=== PATIENT | male | born 1990 | race Caucasian/White ===

== ENCOUNTER 2020-10-06 04:55 | Inpatient (IN) | payer BC ==
[2020-10-06 05:05] VITALS: RESP 18
--- NOTE | 2020-10-06 05:07 | ED ---
Psych HPI - General Chief Complaint: Psychiatric Symptoms Stated Complaint: Mental health Time Seen by Provider: 10/06/20 05:07 Source: patient, RN notes reviewed, old records reviewed, Caregiver Mode of arrival: EMS Limitations: no limitations - History of Present Illness Initial Comments: This is a 30-year-old male presenting for mental health evaluation. Patient states is having worsening of his mental health issues. Feels suicidal feels depressed MD Complaint: suicidal ideation, feels depressed -: unknown Associated Psychiatric Symptoms: depression, suicidal ideation, racing thoughts History of same: Yes Quality: constant, getting worse Improves With: none Worsens With: none Context: significant life stressor Associated Symptoms: denies other symptoms Treatments Prior to Arrival: placed on mental health hold If Self Harm: admits thoughts of self harm - Related Data Home Medications Medication Instructions Recorded Confirmed Venlafaxine HCl ER [Effexor Xr] 37.5 mg PO DAILY 10/06/20 10/06/20 Allergies Allergy/AdvReac Type Severity Reaction Status Date / Time No Known Allergies Allergy Verified 10/06/20 14:35 Review of Systems ROS Statement: Those systems with pertinent positive or pertinent negative responses have been documented in the HPI. ROS Other: All systems not noted in ROS Statement are negative. Past Medical History Past Medical History: No Reported History History of Any Multi-Drug Resistant Organisms: None Reported Past Surgical History: No Surgical Hx Reported Past Psychological History: No Psychological Hx Reported Smoking Status: Current every day smoker Past Alcohol Use History: None Reported Past Drug Use History: Marijuana, Methamphetamine General Exam General appearance: alert, in no apparent distress Head exam: Present: atraumatic, normocephalic, normal inspection Eye exam: Present: normal appearance, PERRL, EOMI. Absent: scleral icterus, conjunctival injection, periorbital swelling ENT exam: Present: normal exam, mucous membranes moist Neck exam: Present: normal inspection. Absent: tenderness, meningismus, lymphadenopathy Respiratory exam: Present: normal lung sounds bilaterally. Absent: respiratory distress, wheezes, rales, rhonchi, stridor Cardiovascular Exam: Present: regular rate, normal rhythm, normal heart sounds. Absent: systolic murmur, diastolic murmur, rubs, gallop, clicks GI/Abdominal exam: Present: soft, normal bowel sounds. Absent: distended, tenderness, guarding, rebound, rigid Extremities exam: Present: normal inspection, full ROM, normal capillary refill. Absent: tenderness, pedal edema, joint swelling, calf tenderness Back exam: Present: normal inspection Neurological exam: Present: alert, oriented X3, CN II-XII intact Psychiatric exam: Present: normal affect, normal mood Skin exam: Present: warm, dry, intact, normal color. Absent: rash Course Vital Signs 10/06/20 10/06/20 05:01 13:25 Temperature 97.8 F Pulse Rate 81 80 Respiratory 18 18 Rate Blood Pressure 128/81 121/78 O2 Sat by Pulse 98 100 Oximetry - Reevaluation(s) Reevaluation #1: 10/06/20 06:09 Medical records reviewed Reevaluation #2: 10/06/20 06:09 Medical clear for psychiatric evaluation Medical Decision Making - Medical Decision Making 30 male seen and evaluated psychiatry patient be admitted for psychiatric evaluation and treatment - Lab Data Lab Results 10/06/20 10/06/20 10/06/20 Range/Units 10:14 10:14 11:00 Urine Color Yellow Urine Appearance Clear (Clear) Urine pH 6.0 (5.0-8.0) Ur Specific [place] 1.015 (1.001-1.035) Urine Protein Negative (Negative) Urine Glucose (UA) Negative (Negative) Urine Ketones Trace H (Negative) Urine Blood Negative (Negative) Urine Nitrite Negative (Negative) Urine Bilirubin Negative (Negative) Urine Urobilinogen <2.0 (<2.0) mg/dL Ur Leukocyte Esterase Negative (Negative) Urine Opiates Screen Not Detected (NotDetected) Ur Oxycodone Screen Not Detected (NotDetected) Urine Methadone Screen Not Detected (NotDetected) Ur Propoxyphene Screen Not Detected (NotDetected) Ur Barbiturates Screen Not Detected (NotDetected) U Tricyclic Antidepress Not Detected (NotDetected) Ur Phencyclidine Scrn Not Detected (NotDetected) Ur Amphetamines Screen Detected H (NotDetected) U Methamphetamines Scrn Detected H (NotDetected) U Benzodiazepines Scrn Not Detected (NotDetected) Urine Cocaine Screen Not Detected (NotDetected) U Marijuana (THC) Screen Detected H (NotDetected) Coronavirus (PCR) Not Detected (Not Detectd) Disposition Clinical Impression: Depression, Suicidal ideation, Acute anxiety Disposition: TRANSFER TO PSYCH HOSP/UNIT Condition: Fair Is patient prescribed a controlled substance at d/c from ED?: No
[2020-10-06 10:55] LABS: Amphetamine Screen,Urine Detected (NotDetected); Barbiturate Screen,Urine Not Detected (NotDetected); Benzodiazepines Screen,Urine Not Detected (NotDetected); Cocaine Screen,Urine Not Detected (NotDetected); Methadone Screen, Urine Not Detected (NotDetected); Opiate Screen,Urine Not Detected (NotDetected); Oxycodone Screen, Urine Not Detected (NotDetected); Phencyclidine Screen,Urine Not Detected (NotDetected); Tricyclic Antidepressant,Urine Not Detected (NotDetected); Urn Cannabinoid Scrn Detected (NotDetected)
[2020-10-06] MEDS ORDERED: ACETAMINOPHEN TAB 325 MG TAB PO PRN (13:26)
[2020-10-06] MEDS ORDERED: LORazepam 1 MG TAB PO PRN (13:26)
[2020-10-06] MEDS ORDERED: MAG HYDROX/AL HYDROX/SIMETH 30 ML CUP PO PRN (13:26)
[2020-10-06] MEDS ORDERED: MAGNESIUM HYDROXIDE 2,400 MG/10 ML CUP PO PRN (13:26)
[2020-10-06] MEDS ORDERED: LORazepam 2 MG/ML INJ IM PRN (13:28)
[2020-10-06] MEDS ORDERED: haloperidoL 5 MG TAB PO PRN (13:29)
[2020-10-06] MEDS ORDERED: HALOPERIDOL LACTATE 5 MG/ML 1 ML VIAL IM PRN (13:29)
[2020-10-06] MEDS ORDERED: traZODone HCL 50 MG TAB PO PRN (13:30)
[2020-10-06 17:47] LABS: Appearance,Urine Clear (Clear); Bilirubin,Urine Negative (Negative); Blood,Urine Negative (Negative); Color,Urine Yellow; Glucose,Urine (UA) Negative (Negative); Ketones,Urine Trace (Negative); Leukocyte Esterase,Urine Negative (Negative); Nitrite,Urine Negative (Negative); Protein,Urine Negative (Negative); Specific Gravity,Urine 1.015 (1.001-1.035); Urobilinogen,Urine <2.0 mg/dL (<2.0)
--- NOTE | 2020-10-07 03:31 | P.CONS ---
History of Present Illness - Reason for Consult Consult date: 10/07/20 - History of Present Illness The patient is a 30-year-old male with a PMH of polysubstance abuse and depression who presented to the emergency room with depression and suicidal ideation. The patient reported that he had been struggling with his substance abuse and multiple social issues including his possibly having an affair. He reports continued feelings of depression following his admission. Denied having any particular plan on how to harm himself. Denied physical complaints. Denied chest discomfort, shortness of breath, fever, cough. Denied abdominal pain, nausea, vomiting. Reports smoking 1 pack of cigarettes daily along with using methamphetamines and marijuana. She does not wish to go to a rehab at this time Review of systems: Pertinent positives and negatives as discussed in HPI, a complete review of systems was performed and all other systems are negative. Physical examination: General: non toxic, no distress, appears at stated age, normal weight Derm: no unusual rashes/lesions no unusual ecchymoses, warm, dry Head: atraumatic, normocephalic, symmetric Eyes: EOMI, no lid lag, anicteric sclera, pupils equal round reactive to light ENT: Nose and ears atraumatic, no thrush, no pharyngeal erythema Neck: No thyromegaly, no cervical lymphadenopathy, trachea midline, supple Mouth: no lip lesion, mucus membranes moist Cardiovascular: S1S2 reg, no murmur, positive posterior tibial pulse bilateral, no edema, capillary refill less than 2 seconds Lungs: CTA bilateral, no rhonchi, no rales , no accessory muscle use Abdominal: soft, nontender to palpation, no guarding, no appreciable organomegaly, normal bowel sounds Ext: no gross muscle atrophy, muscle strength 5 out of 5 in all 4 extremities grossly, no contractures, Neuro: CN II-XI grossly intact, light touch intact all 4 extremities, finger to nose within normal limits, Psych: Alert, oriented, depressed affect Assessment/plan Polysubstance abuse -Advised on the importance of cessation Depression and suicidal ideation -As per psychiatry Thank you for allowing us to participate in the care of this patient. We will follow peripherally. Do not hesitate to contact us with questions. Someone can be reached from the [facility] hospitalist group at all hours of the day at [phone]. Past Medical History Past Medical History: No Reported History History of Any Multi-Drug Resistant Organisms: None Reported Past Surgical History: No Surgical Hx Reported Past Psychological History: No Psychological Hx Reported Smoking Status: Current every day smoker Past Alcohol Use History: None Reported Past Drug Use History: Marijuana, Methamphetamine Medications and Allergies Home Medications Medication Instructions Recorded Confirmed Type Venlafaxine HCl ER [Effexor Xr] 37.5 mg PO DAILY 10/06/20 10/06/20 History Allergies Allergy/AdvReac Type Severity Reaction Status Date / Time No Known Allergies Allergy Verified 10/06/20 14:35 Physical Exam Vitals: Vital Signs Temp Pulse Pulse Resp BP BP Pulse Ox 10/06/20 14:17 98.7 F 74 18 124/79 100 10/06/20 13:25 80 18 121/78 100 10/06/20 05:01 97.8 F 81 18 128/81 98 Intake and Output 10/06/20 10/06/20 10/07/20 14:59 22:59 06:59 Other: Weight 63.503 kg Results Labs: Abnormal Lab Results - Last 24 Hours (Table) 10/06/20 10/06/20 Range/Units 10:14 10:14 Urine Ketones Trace H (Negative) Ur Amphetamines Screen Detected H (NotDetected) U Methamphetamines Scrn Detected H (NotDetected) U Marijuana (THC) Screen Detected H (NotDetected)
[2020-10-07] MEDS: NICOTINE 14MG/24HR PATCH TRANSDERM SCH (08:37)
[2020-10-07] MEDS ORDERED: VENLAFAXINE HCL ER 37.5 MG CAP PO SCH (09:00)
[2020-10-07 09:28] LABS: ALT 20 U/L (4-49); AST 27 U/L (17-59); African American GFR (CKD) >90 (>60 ml/min/1.73 sqM); Albumin 4.5 g/dL (3.5-5.0); Alkaline Phosphatase 61 U/L (38-126); Anion Gap 9 mmol/L; Blood Urea Nitrogen 11 mg/dL (9-20); Calcium 9.5 mg/dL (8.4-10.2); Carbon Dioxide 23 mmol/L (22-30); Chloride 107 mmol/L (98-107); Glucose 141 mg/dL (74-99); Non-African American GFR(CKD) >90 (>60 ml/min/1.73 sqM); Sodium 139 mmol/L (137-145); Total Bilirubin 0.7 mg/dL (0.2-1.3)
[2020-10-07 09:29] LABS: Basophils # (A) 0.1 k/uL (0-0.2); Basophils % (A) 1 %; Eosinophils # (A) 0.2 k/uL (0-0.7); Eosinophils % (A) 2 %; HCT 47.6 % (39.0-53.0); HGB 16.1 gm/dL (13.0-17.5); Lymphocytes # (A) 2.1 k/uL (1.0-4.8); Lymphocytes % (A) 31 %; MCH 29.6 pg (25.0-35.0); MCHC 33.9 g/dL (31.0-37.0); MCV 87.3 fL (80.0-100.0); Mean Platelet Volume 7.1; Monocytes # (A) 0.4 k/uL (0-1.0); Monocytes % (A) 6 %; Neutrophils # (A) 3.9 k/uL (1.3-7.7); Neutrophils % (A) 58 %; Platelet Count 304 k/uL (150-450); RBC 5.45 m/uL (4.30-5.90); RDW 12.9 % (11.5-15.5); WBC 6.8 k/uL (3.8-10.6)
[2020-10-07] MEDS: OLANZapine 5 MG TAB PO SCH ×4 (15:07→22:03)
[2020-10-07 17:15] LABS: Chol/HDL Ratio 2.67; Cholesterol 139 mg/dL (0-200); LDL Cholesterol,Calculated 72.2 mg/dL (0.0-131.0)
[2020-10-07 17:56] LABS: Hemoglobin A1C 4.9 % (4.0-6.0)
--- NOTE | 2020-10-07 20:17 | HP ---
HISTORY AND PHYSICAL IDENTIFYING DATA: The patient is a 30-year-old male. He resides with his and 2 children ages 4 and 5. He presented to the ED for evaluation. CHIEF COMPLAINT: The patient had been abusing methamphetamines. He was getting agitated. He had paranoid thinking. HISTORY OF PRESENTING ILLNESS: The patient has not had a prior psychiatric hospitalization. He notes that over the last 6 months he started using and abusing methamphetamine. He said a precipitating factor was a number of stress issues. One included that his father had been diagnosed with leukemia. Another was that he felt under a lot of stress at work. 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 He acknowledges that he had alcohol issues in his early 20s as he said that "I partied a lot." He said that he likely tends to have a tendency towards drug use. He has occasionally used cocaine. When he started getting into methamphetamines he said it became very frequent use up to the present. One additional stress was that some months back he discovered that his was having online affairs. He said he had a lot of distress over this. He developed paranoid thinking that there was more going on than what he was able to understand in reality. He said that in fact what lead to his coming into the hospital is that he and his had an agreement to be open with their telephone so they could track one another if there were any questions or concerns. The patient said he started feeling jealous of his and on the day prior to admission he got on her telephone and got obsessed with trying to find telephone numbers and other contacts. He acknowledged that he was not able to find anything other than what had happened in the past though he said that he just escalated in his worries and fears about it. He said he got to the point where his threatened to petition him to the hospital. As such, he ended in the middle of the night driving himself to the hospital. He has been on Effexor 37.5 mg a day, which she has been on for about 3 months. He says the Effexor has helped some with depression. He notes that he has been sleeping poorly. He has loss of motivation, energy and interest. He notes that in the past he had been in some counseling, though says with the stress that he was dealing with over the last 6 months and especially the stress relating to his marital situation, he did not reach out for support or help as he should have. He acknowledged that he had affairs himself and that in the midst of the marital issues he and his became much more distant and having very poor communication. He said at this point with his children being 4 and 5 years old, that the marital issues became more of a crisis as he was faced with parenting issues. The patient denies having hallucinations, though acknowledges some paranoia. He does feel that has been lessening. He did not clearly describe past trauma or post-traumatic issues. He does have significant anxiety. He was vague about whether or not he has had panic symptoms. Currently he has been taking Effexor XR 37.5 mg a day prescribed by his primary care physician, Dr. Juarez. He is admitted for further evaluation. SUBSTANCE USE HISTORY: As above. PAST MEDICAL HISTORY: The patient reports no chronic or current general health complaints. FAMILY AND SOCIAL HISTORY: The patient has been for 7 years. He and his have 2 children, ages 4 and 5. The patient has a high school degree and has considered some college work. 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 His works as a nurse. MENTAL STATUS EXAM: Patient sat with a little restlessness. He gave good eye contact. He answered questions with direct responses. He did not say a lot. He was somewhat spontaneous and interactive. His thoughts were clear and coherent. His affect was anxious. His mood was depressed. He was significantly distressed. He indicated some paranoid thinking, though otherwise did not note significant psychotic symptoms. He voiced no thoughts of harm. On cognitive exam he was oriented x3 and alert. He remembered 2/3 objects in 4 minutes. He could give the days of the week in reverse order without difficulty. He could do serial 3 subtraction. Insight and judgment were fair. Fund of knowledge average. PHYSICAL EXAM: As per medical consultation. ASSESSMENT: This 30-year-old male is diagnosed with major depression and methamphetamine abuse and dependence. He has significant stress issues, particularly marital conflicts. He does show insight into some of his mental health issues which in part was part of his presenting to the hospital. This is one of his strengths. Weakness includes methamphetamine abuse. DIAGNOSES: 1. Major depression, severe. 2. Methamphetamine abuse and dependence with acute methamphetamine withdrawal. RECOMMENDATIONS: Patient will be admitted for comprehensive medical psychiatric and psychosocial evaluation. We will engage the patient in individual and group therapeutic activities. I had an extensive discussion with the patient regarding substance use issues and the course of withdrawal. It does appear that the patient has had a proclivity towards substance dependence given his current use plus history of problems with alcohol. I will start the patient on Zyprexa 5 mg 3 times a day. The aim of Zyprexa is to help reduce physiologic stress response relating to acute alcohol withdrawal. I will continue Effexor XR. The dose will be increased to 75 mg a day. I discussed with the patient that he is not likely to gain much benefit from antidepressant in the for 6 weeks of withdrawing off the methamphetamine though beyond that Effexor may be a beneficial medication. We discussed the long-term course of treatment with antidepressants. I reviewed indication for Zyprexa, potential side effects and longer- term concerns relating to metabolics and movement disorder issues. We will consider setting up a family meeting with the patient and his given that they have made some steps forward in attempting to address some of their relationship issues. We will focus on stabilization and discharge planning. VITALY / MICAELAN: [id number] /
[2020-10-08] MEDS: OLANZapine 5 MG TAB PO SCH ×3 (08:47→22:14)
[2020-10-08] MEDS: NICOTINE 14MG/24HR PATCH TRANSDERM SCH (08:47)
[2020-10-08] MEDS ORDERED: VENLAFAXINE HCL ER 75 MG CAP PO SCH (09:00)
--- NOTE | 2020-10-08 17:04 | PN ---
PROGRESS NOTE DATE OF SERVICE: 10/08/2020 CHIEF COMPLAINT: The patient had been abusing methamphetamines. He was getting agitated. He had paranoid thinking. INTERVAL HISTORY: Patient has been doing fair. He had a quiet day yesterday. He comes out on the unit. He does interact some with others. He tends to have a quiet manner. He attended 2 groups yesterday and seemed to do well in groups. He slept well last night. Today he has been up. He said he has been tired today and missed one morning group though then attended the 9:30 group. He was noted to be appropriate and calm in the group. We had set up the possibility of a family meeting with the patient and his today though she had to work and thus was not able to come in for the meeting. The patient seems to be making some headway in regards to gaining some insight about his own situation and issues that he and his need to deal with. He did not say a lot about what communication the two of them have had since he has been in the hospital. He did seem to have reasonable insight about the idea that he and his needed to address their relationship issues as a high priority for him. He tolerates his psychotropic medications. MENTAL STATUS: Patient gave fair eye contact. Psychomotor activity was somewhat slowed. He answered questions with brief responses. His thoughts were clear, coherent and goal-directed. He had a blunted affect. His mood was reserved though not clearly depressed. He had a worried manner though did not seem to be significantly distressed. There was no indication of thought disorder. He voiced no thoughts of harm. Cognition was clear. ASSESSMENT: I will continue the current diagnosis and treatment plan. I will continue psychotropic medications the same, though will increase Effexor on Sunday to 150 mg a day. He will continue Zyprexa 5 mg 3 times a day and has trazodone 50 mg p.r.n. I reviewed treatment planning with the issue as well as his medications. We talked about the indication of Zyprexa primarily for withdrawal from methamphetamines, though also as an augmentation to his antidepressant. I encouraged him to continue working on communication with his . We talked about discharge planning and I would anticipate him being discharged early in the week. MMODL / IJN: [id number] /
[2020-10-09 07:02] VITALS: BP 96/52; PULSE 88; TEMP 97.4
[2020-10-09] MEDS: OLANZapine 5 MG TAB PO SCH ×3 (08:43→21:20)
[2020-10-09] MEDS: NICOTINE 14MG/24HR PATCH TRANSDERM SCH (08:44)
--- NOTE | 2020-10-09 17:02 | P.PN ---
Progress Note - Text Progress Note Date: 10/09/20 Clinical Problems: Methamphetamine withdrawal, methamphetamine induced mood disorder, methamphetamine use disorder, marital problems Interim history: I reviewed the medical record and interviewed the patient. He is a 30-year-old male who presented to the ED complaints of depression and suicidal ideation. His urine drug screen was positive for methamphetamines methamphetamine metabolites and he admitted to using methamphetamine. He attributed this has to number of stresses including marital problems. He complained of feeling fatigued and tired. He spends his time in bed coming out for meals. He does not attend therapeutic groups and activities. Mental status exam: He presented as a thin casually groomed 30-year-old male who looked older than his stated age. He made eye contact and appeared to attend to interview. He had no distinguishing features or prominent physical abnormalities. He had a flat facial expression. He had psychomotor retardation but no abnormal involuntary movements. Her speech was not spontaneous and had decreased rate and rhythm. His affect was flat. He denied current suicidal ideation or wishes. He did not express feelings of hopelessness, helplessness or worthlessness. He expressed ideas reference, paranoid ideation or delusions. His thing he was concrete but his associations were coherent, logical and goal directed. He denied hallucinations did not appear to be responding to internal stimuli. Assessment: He is showing signs and symptoms of acute amphetamine withdrawal Plan: Continue inpatient treatment. Safety precautions. Continue current psychotropic medications including Zyprexa 5 mg 3 times a day, Desyrel 50 mg at bedtime and Effexor XR 150 mg daily. Habitrol for smoking cessation. Haldol and/or Ativan for anxiety, agitation or acute psychosis. Encourage participation in therapeutic groups and activities. Evaluate current status response to treatment on a basis.
[2020-10-10] MEDS: NICOTINE 14MG/24HR PATCH TRANSDERM SCH (08:03)
[2020-10-10] MEDS: OLANZapine 5 MG TAB PO SCH ×3 (08:03→22:11)
[2020-10-10] MEDS: VENLAFAXINE HCL ER 150 MG CAP PO SCH (08:03)
--- NOTE | 2020-10-10 11:09 | P.PN ---
Progress Note - Text Progress Note Date: 10/10/20 Clinical Problems: Methamphetamine withdrawal, methamphetamine induced mood disorder, rule out major depressive disorder, methamphetamine use disorder, marital problems Interim history: I reviewed the medical record and interviewed the patient. He feels less fatigued and yesterday. He is forcing himself to get out of bed and attend group activities. He acknowledges substance use problems and expressed an interest in participating in substance abuse treatment including AA and/or NA. Admits distressed about his marital relationship. He plans to begin outpatient mental health services and has spoken to his about marital counseling and attempt to repair the relationship. Mental status exam: He presented as a thin casually groomed 30-year-old male who looked older than his stated age. He made eye contact and appeared to attend to interview. He had no distinguishing features or prominent physical abnormalities. He had a flat facial expression. He had psychomotor retardation but no abnormal involuntary movements. Her speech was spontaneous and had decreased rate and rhythm. His affect was pressed and he cried intermittently during interview. He denied current suicidal ideation or wishes. He did not express feelings of hopelessness, helplessness or worthlessness. He expressed ideas reference, paranoid ideation or delusions. His thing he was concrete but his associations were coherent, logical and goal directed. He denied hallucinations did not appear to be responding to internal stimuli. Assessment: He has signs and symptoms depression differential includes methamphetamine induced depressive disorder and a major depressive disorder. Ov felicia, clinical status is improved from admission Plan: Continue inpatient treatment. Safety precautions. Continue current psychotropic medications including Zyprexa 5 mg 3 times a day, Desyrel 50 mg at bedtime and Effexor XR 150 mg daily. Habitrol for smoking cessation. Haldol and/or Ativan for anxiety, agitation or acute psychosis. Encourage participation in therapeutic groups and activities. Evaluate current status response to treatment on a basis.
[2020-10-11] MEDS: OLANZapine 5 MG TAB PO SCH (08:50)
[2020-10-11] MEDS: NICOTINE 14MG/24HR PATCH TRANSDERM SCH (08:50)
[2020-10-11] MEDS: VENLAFAXINE HCL ER 150 MG CAP PO SCH (08:51)
--- NOTE | 2020-10-11 11:30 | P.DS ---
Providers Date of admission: 10/06/20 13:18 Expected date of discharge: 10/11/20 Attending physician: Alcides Vogel MD Consults: 10/06/20 13:26 Consult Physician Routine Consulting Provider: Lelo Physician Consult Reason/Comments: Medical management Do you want consulting provider notified?: Yes Primary care physician: Giovanni Juarez - Discharge Diagnosis(es) (1) Major depressive disorder Current Visit: Yes Status: Acute Priority: High (2) Methamphetamine abuse Current Visit: Yes Status: Acute Priority: High (3) Cannabis abuse Current Visit: Yes Status: Acute Priority: Medium (4) Nicotine dependence Current Visit: Yes Status: Acute Priority: Low Hospital Course: Admission HPI: Admission note was completed by Dr. Rooney "the patient is a 30-year-old male. He resides with his and 2 children ages 4 and 5. He presented to the ED for evaluation. The patient had been abusing methamphetamines. He was getting agitated. He had paranoid thinking. The patient has not had a prior psychiatric hospitalization. He notes that over the last 6 months he started using and abusing methamphetamine. He said a precipitating factor was a number of stress issues. One included that his father had been diagnosed with leukemia. Another was that he felt under a lot of stress at work. 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 He acknowledges that he had alcohol issues in his early 20s and he said that "I partied a lot". He said that he likely tends to have a tendency towards drug use. He has occasionally used cocaine. When he started getting into methamphetamines he said it became very frequent use up to present. One armando tional stress was that some months back he discovered that his was having some online affairs. He said he had a lot of distress over this. He developed paranoid thinking that there was more going on than what he was able to understand reality. He said that in fact what led to his coming to the hospital is that he and his in agreement to be open with their telephone so he could track one another if there was any questions or concerns. The patient said he started feeling jealous of his and on the day prior to admission he got on the telephone and got obsessed with trying to find telephone numbers and other contacts. He acknowledged that he was not able to find anything other than what had happened in the past though he said that he just escalated in his worries and fears about it. He said he got to the point where she has threatened to petition him to the hospital. As such he ended in the middle of the night driving himself to the hospital. He has been on Effexor 37.5 mg a day, which he has been on for about 3 months now. He says the Effexor has helped with some depression. He notes that he has been sleeping poorly. He has loss of motivation, energy and interest. He notes that in the past he had been in some counseling, though says with the stress that he was dealing with over the last 6 months and especially the stress relating to his marital situation, he did not reach out for support or help as he should have. He acknowledged that he had affairs himself and that in the midst of the marital issues he and his became much more distant and having very poor Medication. He said that at this point with his children being euphoric and 5 years old, that the marital issues became more of a crisis as he was faced with parenting issues. The patient denies having hallucinations, though acknowledges some paranoia. He does feel that has been less sitting. He did not really describe past trauma or posttraumatic issues. He does have significant anxiety. He was vague about whether or not he has had panic symptoms. Currently he has been taking Effexor XR 37.5 mg a day prescribed by his PCP Rikki. He is admitted for further evaluation." Hospital course: Upon admission to the unit patient was initially depressed and suicidal along with endorsing paranoia. Patient was however directable and agreeable to commence treatment and signed adult voluntary form. Patient got along well with other patients on the unit and followed unit protocol. Patient was compliant with the medications and denied any side effects throughout hospital course. Patient was started on Zyprexa however was decreased down to 5 mg twice a day for paranoia/mood, Effexor was increased to 150 mg daily for mood/anxiety. Patient spoke of his stressors and engaged in therapy both group and individual. Patient was also seen by medical team for history and physical exam. Throughout the course of the hospitalization patient gradually improved with regards to mood, anxiety, paranoia, sleep and became more future oriented with improved insight and judgment. On the day of discharge patient denied any suicidal or homicidal ideations intent or plan denied any auditory or visual hallucinations. Patient endorsed wanting to live for his health and family/kids. The patient denied any access to guns or weapons. Patient denied any paranoia and did not endorse any delusions. Patient does have a significant history of substance abuse and was counseled on abstaining from all substances including alcohol and marijuana. Patient was offered however declined inpatient substance- abuse rehab. Patient elected to do outpatient substance use treatment program. Patient was also counseled on the medications and need for regular compliance and was encouraged to follow-up with their outpatient appointment for mental health and also for primary care. Prior to discharge a family meeting will be arranged by social work associate to answer any questions and ensure safety upon discharge and ensure that any guns or weapons are locked away. Patient will be staying with his parents upon discharge Mental status exam: General Appearance: Patient appears to be thin, stated age is alert, pleasant, and cooperative. Patient is in no acute distress and has improved hygiene and grooming Behavior: Patient is calmly seated without any agitated behavior. Speech: Patient's speech is fluent and nonpressured. Mood/Affect: Patient reports their mood is "[much better], affect is congruent and euthymic. Suicidality/Homicidality: Patient denies having any suicidal or homicidal i deation intent or plan. Perceptions: Patient denies any auditory or visual hallucinations. Though content/process: There is no evidence of any delusional thought content and thought process is linear and goal-directed. [ore future oriented]Memory and concentration: AOX3, grossly intact for the purposes of this session. Can spell "WORLD" backwards correctly. Judgment and insight: improved with guarded prognosis Impression: Major depressive disorder, severe recurrent Cannabis abuse Methamphetamine abuse Nicotine dependence Plan: -Continue with discharge today as patient has improved and stabilized psychiatrically and is not currently an imminent threat to [imself]and/or others. [atient will remain at chronically elevated risk for harm to self and/or others due to his polysubstance abuse.]-Continue medications: Continue with Zyprexa 5 mg twice a day for psychosis/mood and this can be further evaluated as an outpatient to see if it can be decreased further or tapered off. Continue w ith Effexor 150 mg daily for mood/anxiety. -Patient was counseled on the need for medication compliance and appropriate follow-up at mental health and also primary care for medical issues. Patient ve rbalized understanding and agreed. -Social work to [rrange for and conduct family meeting to ensure safety upon discharge and answer any questions/concerns.]Social work also to arrange for patients follow up appointments for psychiatric care along with follow up with primary care provider. -Patient counseled on abstaining from recreational drugs and marijuana and alcohol. Was informed/educated on the adverse effects on their physical and mental health. patient verbally agreed and understood] [patient was offered substance abuse treatment however declined at this time and preferred to do outpatient treatment instead. -Patient was instructed to return to the hospital or seek immediate medical care if their psychiatric or medical symptoms do worsen or reoccur. Allergies Allergy/AdvReac Type Severity Reaction Status Date / Time No Known Allergies Allergy Verified 10/06/20 14:35 Laboratory Results WBC 6.8 k/uL (3.8-10.6) 10/07/20 08:44 RBC 5.45 m/uL (4.30-5.90) 10/07/20 08:44 Hgb 16.1 gm/dL (13.0-17.5) 10/07/20 08:44 Hct 47.6 % (39.0-53.0) 10/07/20 08:44 MCV 87.3 fL (80.0-100.0) 10/07/20 08:44 MCH 29.6 pg (25.0-35.0) 10/07/20 08:44 MCHC 33.9 g/dL (31.0-37.0) 10/07/20 08:44 RDW 12.9 % (11.5-15.5) 10/07/20 08:44 Plt Count 304 k/uL (150-450) 10/07/20 08:44 MPV 7.1 10/07/20 08:44 Neutrophils % 58 % 10/07/20 08:44 Lymphocytes % 31 % 10/07/20 08:44 Monocytes % 6 % 10/07/20 08:44 Eosinophils % 2 % 10/07/20 08:44 Basophils % 1 % 10/07/20 08:44 Neutrophils # 3.9 k/uL (1.3-7.7) 10/07/20 08:44 Lymphocytes # 2.1 k/uL (1.0-4.8) 10/07/20 08:44 Monocytes # 0.4 k/uL (0-1.0) 10/07/20 08:44 Eosinophils # 0.2 k/uL (0-0.7) 10/07/20 08:44 Basophils # 0.1 k/uL (0-0.2) 10/07/20 08:44 Sodium 139 mmol/L (137-145) 10/07/20 08:44 Potassium 5.0 mmol/L (3.5-5.1) 10/07/20 08:44 Chloride 107 mmol/L (98-107) 10/07/20 08:44 Carbon Dioxide 23 mmol/L (22-30) 10/07/20 08:44 Anion Gap 9 mmol/L 10/07/20 08:44 BUN 11 mg/dL (9-20) 10/07/20 08:44 Creatinine 0.69 mg/dL (0.66-1.25) 10/07/20 08:44 Est GFR (CKD-EPI)AfAm >90 (>60 ml/min/1.73 sqM) 10/07/20 08:44 Est GFR (CKD-EPI)NonAf >90 (>60 ml/min/1.73 sqM) 10/07/20 08:44 Glucose 141 mg/dL (74-99) H 10/07/20 08:[address] Glu mg/dL 94 10/07/20 08:44 Hemoglobin A1c 4.9 % (4.0-6.0) 10/07/20 08:44 Calcium 9.5 mg/dL (8.4-10.2) 10/07/20 08:44 Total Bilirubin 0.7 mg/dL (0.2-1.3) 10/07/20 08:44 AST 27 U/L (17-59) 10/07/20 08:44 ALT 20 U/L (4-49) 10/07/20 08:44 Alkaline Phosphatase 61 U/L (38-126) 10/07/20 08:44 Total Protein 7.0 g/dL (6.3-8.2) 10/07/20 08:44 Albumin 4.5 g/dL (3.5-5.0) 10/07/20 08:44 Triglycerides 74.0 mg/dL (0.0-149.0) 10/07/20 08:44 Cholesterol 139 mg/dL (0-200) 10/07/20 08:44 LDL Cholesterol, Calc 72.2 mg/dL (0.0-131.0) 10/07/20 08:44 VLDL Cholesterol, Calc 14.80 mg/dL (5.00-40.00) 10/07/20 08:44 HDL Cholesterol 52.0 mg/dL (40.0-60.0) 10/07/20 08:44 Cholesterol/HDL Ratio 2.67 10/07/20 08:44 TSH 0.733 mIU/L (0.465-4.680) 10/07/20 08:44 Urine Color Yellow 10/06/20 10:14 Urine Appearance Clear (Clear) 10/06/20 10:14 Urine pH 6.0 (5.0-8.0) 10/06/20 10:14 Ur Specific [place] 1.015 (1.001-1.035) 10/06/20 10:14 Urine Protein Negative (Negative) 10/06/20 10:14 Urine Glucose (UA) Negative (Negative) 10/06/20 10:14 Urine Ketones Trace (Negative) H 10/06/20 10:14 Urine Blood Negative (Negative) 10/06/20 10:14 Urine Nitrite Negative (Negative) 10/06/20 10:14 Urine Bilirubin Negative (Negative) 10/06/20 10:14 Urine Urobilinogen <2.0 mg/dL (<2.0) 10/06/20 10:14 Ur Leukocyte Esterase Negative (Negative) 10/06/20 10:14 Urine Opiates Screen Not Detected (NotDetected) 10/06/20 10:14 Ur Oxycodone Screen Not Detected (NotDetected) 10/06/20 10:14 Urine Methadone Screen Not Detected (NotDetected) 10/06/20 10:14 Ur Propoxyphene Screen Not Detected (NotDetected) 10/06/20 10:14 Ur Barbiturates Screen Not Detected (NotDetected) 10/06/20 10:14 U Tricyclic Antidepress Not Detected (NotDetected) 10/06/20 10:14 Ur Phencyclidine Scrn Not Detected (NotDetected) 10/06/20 10:14 Ur Amphetamines Screen Detected (NotDetected) H 10/06/20 10:14 U Methamphetamines Scrn Detected (NotDetected) H 10/06/20 10:14 U Benzodiazepines Scrn Not Detected (NotDetected) 10/06/20 10:14 Urine Cocaine Screen Not Detected (NotDetected) 10/06/20 10:14 U Marijuana (THC) Screen Detected (NotDetected) H 10/06/20 10:14 Coronavirus (PCR) Not Detected (Not Detectd) 10/06/20 11:00 Vital Signs Temp 97.4 F L 10/09/20 07:01 Pulse 88 10/09/20 07:01 Resp 18 10/09/20 07:01 BP 96/52 10/09/20 07:01 Pulse Ox 95 10/09/20 07:01 Intake & Output 10/10/20 10/11/20 10/11/20 18:59 06:59 18:59 Weight 66.4 kg Patient Condition at Discharge: Stable Plan - Discharge Summary Discharge Rx Participant: No New Discharge Prescriptions: New Nicotine 14Mg/24Hr Patch [Habitrol] 1 patch TRANSDERM DAILY 14 Days patch OLANZapine [ZyPREXA] 5 mg PO BID 30 Days tab Venlafaxine HCl ER [Effexor XR] 150 mg PO DAILY 30 Days cap.er.24h Discontinued Venlafaxine HCl ER [Effexor Xr] 37.5 mg PO DAILY Discharge Medication List Nicotine 14Mg/24Hr Patch [Habitrol] 1 patch TRANSDERM DAILY 14 Days patch 10/11/20 [Rx] OLANZapine [ZyPREXA] 5 mg PO BID 30 Days tab 10/11/20 [Rx] Venlafaxine HCl ER [Effexor XR] 150 mg PO DAILY 30 Days cap.er.24h 10/11/20 [Rx] Follow up Appointment(s)/Referral(s): Giovanni Juarez MD [Primary Care Provider] - 1-2 days Activity/Diet/Wound Care/Special Instructions: Activity and diet as tolerated. Avoid the use of street drugs and alcohol. Take all medications as prescribed. When you are in need of refills on your medications please contact your medical provider and/or outpatient psychiatrist to have this done. Please go to scheduled outpatient appointment for aftercare treatment. If symptoms return or become worse, call the crisis line at and/or go to the nearest emergency room for evaluation. Discharge Disposition: HOME SELF-CARE
[2020-10-11] MEDS ORDERED: OLANZapine 5 MG TAB PO SCH (21:00)
== END 2020-10-11 14:35 | disposition home or self-care (01) | DRG 885 ==
LOC: EC 04:55 → 3MHU 13:18
PROVIDERS: ADMIT Psychiatry & Neurology Psychiatry; ATTEND Psychiatry & Neurology Psychiatry
DX: F33.2 Major depressive disorder, recurrent severe without psychotic features (principal); F10.239 Alcohol dependence with withdrawal, unspecified; F15.23 Other stimulant dependence with withdrawal; R45.851 Suicidal ideations; F12.10 Cannabis abuse, uncomplicated; F17.210 Nicotine dependence, cigarettes, uncomplicated; F22 Delusional disorders; F41.9 Anxiety disorder, unspecified; Z63.0 Problems in relationship with spouse or partner; Z79.899 Other long term (current) drug therapy; Z80.6 Family history of leukemia; Z20.822 Contact with and (suspected) exposure to COVID-19
CPT/HCPCS: 80053; 80061; 80306; 81003; 82075; 83036; 84443; 85025; 87635; 99285

== ENCOUNTER 2022-06-26 16:32 | Emergency (ER) | payer BC, OTHER ==
[2022-06-26 16:44] VITALS: RESP 16
[2022-06-26] MEDS ORDERED: LIDOCAINE/EPINEPHR/TETRACAINE 5 ML BOTTLE TOPICAL ONE (17:09)
--- NOTE | 2022-06-26 17:30 | ED ---
General Adult HPI - General Chief complaint: Wound/Laceration Stated complaint: [facility] - Head Injury Time Seen by Provider: 06/26/22 16:52 Source: patient, RN notes reviewed Mode of arrival: ambulatory Limitations: no limitations - History of Present Illness Initial comments: 32-year-old male with no significant past medical history presents to the emergency department with a chief complaint of laceration. Patient reports that he was at work when he bent over and stood up and hit his head on a wood cabinet. He denies any loss of consciousness, any anticoagulant use. He is reporting a small laceration to the back of his head. He has not taken anything for his pain management of symptoms. He denies any headache, vision changes blurred vision, dizziness, lightheadedness, nausea, vomiting. - Related Data Previous Rx's Medication Instructions Recorded Nicotine 14Mg/24Hr Patch [Habitrol] 1 patch TRANSDERM DAILY 14 Days 10/11/20 patch OLANZapine [ZyPREXA] 5 mg PO BID 30 Days tab 10/11/20 Venlafaxine HCl ER [Effexor XR] 150 mg PO DAILY 30 Days cap.er.24h 10/11/20 Allergies Allergy/AdvReac Type Severity Reaction Status Date / Time No Known Allergies Allergy Verified 10/06/20 14:35 Review of Systems ROS Statement: Those systems with pertinent positive or pertinent negative responses have been documented in the HPI. ROS Other: All systems not noted in ROS Statement are negative. Past Medical History Past Medical History: No Reported History History of Any Multi-Drug Resistant Organisms: None Reported Past Surgical History: No Surgical Hx Reported Past Psychological History: No Psychological Hx Reported Smoking Status: Current every day smoker General Exam Limitations: no limitations General appearance: alert, in no apparent distress Head exam: Present: atraumatic, normocephalic, normal inspection, other (R occipital region with 2cm laceration with bleeding controlled ) Eye exam: Present: normal appearance, PERRL, EOMI. Absent: scleral icterus, conjunctival injection, periorbital swelling ENT exam: Present: normal exam, mucous membranes moist Neck exam: Present: normal inspection. Absent: tenderness, meningismus, lymphadenopathy Respiratory exam: Present: normal lung sounds bilaterally. Absent: respiratory distress, wheezes, rales, rhonchi, stridor Cardiovascular Exam: Present: regular rate, normal rhythm, normal heart sounds. Absent: systolic murmur, diastolic murmur, rubs, gallop, clicks GI/Abdominal exam: Present: soft, normal bowel sounds. Absent: distended, tenderness, guarding, rebound, rigid Extremities exam: Present: normal inspection, full ROM, normal capillary refill. Absent: tenderness, pedal edema, joint swelling, calf tenderness Back exam: Present: normal inspection Neurological exam: Present: alert, oriented X3, CN II-XII intact Expanded Patient oriented to: Present: person, place, time Speech: Present: fluid speech Cranial nerves: EOM's Intact: Normal Cerebellar function: Finger to Nose: Normal Sensory exam: Upper Extremity Light Touch: Normal, Lower Extremity Light Touch: Normal Motor strength exam: RUE: 5, LUE: 5, RLE: 5, LLE: 5 Eye Response: (4) open spontaneously Motor Response: (6) obeys commands Verbal Response: (5) oriented Psychiatric exam: Present: normal affect, normal mood Skin exam: Present: warm, dry, intact, normal color. Absent: rash Course Vital Signs 06/26/22 16:42 Temperature 98.2 F Pulse Rate 75 Respiratory 16 Rate Blood Pressure 120/75 O2 Sat by Pulse 98 Oximetry Procedures - Laceration Laceration #1 Indication: laceration Site: scalp Size (cm): 2 Description: linear Depth: simple, single layer Pre-repair: wound explored Size of Sutures: other (4 dayanna ) Complications: pain, bleeding, nerve injury Patient Tolerated Procedure: well, no complications, other Medical Decision Making - Medical Decision Making Was pt. sent in by a medical professional or institution (, PA, MANAGER STUDIO, urgent care, hospital, or care home...) When possible be specific @ -[No] Did you speak to anyone other than the patient for history (EMS, parent, family, police, friend...)? What history was obtained from this source @ -[No] Did you review nursing and triage notes (agree or disagree)? Why? @ -[I reviewed and agree with nursing and triage notes] Were old charts reviewed (outside hosp., previous admission, EMS record, old EK G, old radiological studies, urgent care reports/EKG's, care home records)? Report findings @ -[No old charts were reviewed] Differential Diagnosis (chest pain, altered mental status, abdominal pain women, abdominal pain men, vaginal bleeding, weakness, fever, dyspnea, syncope, headache, dizziness, GI bleed, back pain, seizure, CVA, palpatations, mental he alth, musculoskeletal)? @ -[not applicable] EKG interpreted by me (3pts min.). @ -[As above] X-rays interpreted by me (1pt min.). @ -[None done] CT interpreted by me (1pt min.). @ -[None done] U/S interpreted by me (1pt. min.). @ -[None done] What testing was considered but not performed or refused? (CT, X-rays, U/S, labs)? Why? @ -[None] What meds were considered but not given or refused? Why? @ -[None] Did you discuss the management of the patient with other professionals (professionals i.e. , PA, MANAGER STUDIO, lab, RT, psych nurse, social media campaign manager, rotary engraver, teacher, light armored vehicle officer, director case)? Give summary @ -[No] Was smoking cessation discussed for >3mins.? @ -[No] Was critical care preformed (if so, how long)? @ -[No] Were there social determinants of health that impacted care today? How? (Homelessness, low income, unemployed, alcoholism, drug addiction, transportation, low edu. Level, literacy, decrease access to med. care, intermediate, rehab)? @ -[No] Was there de-escalation of care discussed even if they declined (Discuss DNR or withdrawal of care, Hospice)? DNR status @ -[No] What co-morbidities impacted this encounter? (DM, HTN, Smoking, COPD, CAD, Cancer, CVA, ARF, Chemo, Hep., AIDS, mental health diagnosis, sleep apnea, morbid obesity)? @ -[None] Was patient admitted / discharged? Hospital course, mention meds given and route, prescriptions, significant lab abnormalities, going to OR and other pertinent info. @ Discharged. This is a 30-year-old male who presents to the emergency department with laceration. Patient had a thorough history and physical exam performed while in the ED. Physical exam is essentially unremarkable heart rate regular rate and rhythm, lungs bilaterally, abdomen soft and nontender. 2cm laceration to R occipital region of head, bleeding controlled. Patient had 4 dayanna placed which he tolerated well. Patient able to ambulate with a steady gait and there are no focal neuro deficits noted. Patient was given Toradol and Lidoderm patch with symptomatic relief on the ED. I discussed the results in detail with her which she verbalized understanding and all questions were addressed. Return precautions were discussed. Patient discharged in stable condition. Case discussed with Dr. Sexton [facility] who agrees with plan of care Undiagnosed new problem with uncertain prognosis? @ -[No] Drug Therapy requiring intensive monitoring for toxicity (Heparin, Nitro, Insu keisha, Cardizem)? @ -[No] Were any procedures done? @ -[No] Diagnosis/symptom? @ -laceration -[place] placed Acute, or Chronic, or Acute on Chronic? @ -[acute Uncomplicated (without systemic symptoms) or Complicated (systemic symptoms)? @ -uncomplicated Side effects of treatment? @ -[No] Exacerbation, Progression, or Severe Exacerbation? @ -[No] Poses a threat to life or bodily function? How? (Chest pain, USA, MD, pneumonia, PE, COPD, DKA, ARF, appy, cholecystitis, CVA, Diverticulitis, Homicidal, Suicidal, threat to staff... and all critical care pts) @ -low likelihood Disposition Clinical Impression: Laceration Disposition: HOME SELF-CARE Condition: Stable Instructions (If sedation given, give patient instructions): [facility] (ED) Additional Instructions: Please return to the nearest emergency department if symptoms worsen or persist Is patient prescribed a controlled substance at d/c from ED?: No Referrals: None,Stated [Primary Care Provider] - 1-2 days Time of Disposition: 17:29
[2022-06-26 17:54] VITALS: BP 119/77; PULSE 78; TEMP 97.6
== END 2022-06-26 17:55 | disposition home or self-care (01) ==
LOC: EC 16:32
DX: S01.01XA Laceration without foreign body of scalp, initial encounter (principal); F17.200 Nicotine dependence, unspecified, uncomplicated; W22.8XXA Striking against or struck by other objects, initial encounter
CPT/HCPCS: 12001; 99283